=== PATIENT | male | born 1995 | race Caucasian/White ===

== ENCOUNTER 2016-12-22 23:01 | Emergency (ER) | payer SELFPAY ==
[~2016-12-22] VITALS: Ht 162.6 cm; Wt 63.6 kg
[~2016-12-22 23:01] MED LIST: FLEXERIL10 MG PO; NAPROSYN500 MG PO
[2016-12-22 23:53] LABS: ADD MIUA? NO; BILIRUBIN NEGATIVE; BLOOD NEGATIVE; COLOR COLORLESS ((YELLOW)); GLUCOSE (STRIP) NEGATIVE; KETONES NEGATIVE; LEUKOCYTES NEGATIVE; NITRITE NEGATIVE; PROTEIN (STRIP) NEGATIVE; SPECIFIC GRAVITY 1.003 (1.000-1.030); UCUL ADDED? NO; UROBILINOGEN 0.2 MG/DL (0.2-1.0)
[2016-12-23 00:02] LABS: BASOPHIL COUNT 0.1 K/uL (0-0.1); EOSINOPHIL (%) 1.8 % (0-5); EOSINOPHIL COUNT 0.2 K/uL (0-0.3); HEMATOCRIT 43.5 % (38.0-50.0); IMMATURE GRANULOCYTE (%) 0.2 % (0.0-0.7); INSTRUMENT ABS NEUTROPHIL CT 5.5 K/uL; LYMPHOCYTE COUNT 2.6 K/uL (1.0-2.8); MCH 33.5 PG (29.0-34.0); MCHC 36.3 G/DL (30.0-36.0); MCV 92.4 FL (86-99); MEAN PLAT.VOLUME 10.6 uM^3 (9.0-12.4); MONOCYTE (%) 9.9 % (3-12); MONOCYTE COUNT 0.9 K/uL (0-0.8); NEUTROPHIL (%) 59.2 % (45-76); NEUTROPHIL COUNT 5.5 K/uL (1.8-6.4); PLATELET COUNT 179 K/uL (156-360); RBC DIS.WIDTH-CV 12.1 % (11.8-14.6); RBC DIS.WIDTH-SD 41.4 % (39-53); RED BLOOD COUNT 4.71 M/uL (4.00-5.50); WHITE BLOOD COUNT 9.3 K/uL (4.1-10.2)
[2016-12-23 00:20] LABS: CHLORIDE 107 mEq/L (99-109); POTASSIUM 3.6 mEq/L (3.7-5.4); SODIUM 141 mEq/L (136-147)
[2016-12-23 00:22] LABS: GLUCOSE 85 mg/dL (70-99)
[2016-12-23 00:23] LABS: ANION GAP 8 MEQ/L (2-14)
[2016-12-23 00:24] LABS: TOTAL BILIRUBIN 0.4 mg/dL (0.0-1.0)
[2016-12-23 00:25] LABS: ALKALINE PHOSPHATASE 146 IU/L (3-129)
[2016-12-23 00:26] LABS: GFR ESTIMATE (CALCULATED) > 59 mL/min/
[2016-12-23 00:27] LABS: UREA NITROGEN (BUN) 12 mg/dL (9-23)
[2016-12-23 00:29] LABS: LIPASE 19 U/L (1.0-51.0)
[2016-12-23] MEDS ORDERED: SENNA-DOCUSATE1 EAC1 PO (01:30)
[2016-12-23 02:09] VITALS: BP 119/67
== END 2016-12-23 02:10 | disposition home or self-care (01) ==
LOC: EME 23:01
PROVIDERS: Emergency Medicine
DX: K59.00 Constipation, unspecified (principal); F17.200 Nicotine dependence, unspecified, uncomplicated
CPT/HCPCS: 74177; 80053; 81003; 83690; 85025; 99281; 99285; J7030